=== PATIENT | male | born 1980 | race Caucasian/White ===

== ENCOUNTER 2020-05-15 10:27 | Emergency (ER) | payer BC, SELFPAY ==
--- NOTE | ~2020-05-15 | XR_ITS ---
EXAMINATION: XR chest 1V portable DATE: 05/15/2020 11:25 INDICATION: Cough. TECHNIQUE: A single frontal view of the chest was obtained. COMPARISON: None. FINDINGS: There are mild airspace opacities in left mid and lower lung zones. No pleural effusion or pneumothorax. The heart size is normal. IMPRESSION: 1. Mild airspace opacities in left mid and lower lung zones, consistent with pneumonia. Reviewed, dictated and finalized at location A. IFIED WELDING INSPECTOR IMPRESSION: 1. Mild airspace opacities in left mid and lower lung zones, consistent with pn eumonia.
[2020-05-15 10:32] VITALS: BP 130/78; PULSE 80; RESP 18; TEMP 36.8; O2SAT 100
[2020-05-15 10:39] VITALS: O2SAT 100
--- NOTE | 2020-05-15 10:52 | ED.GENADULT ---
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 Patient has been taking ibuprofen and Tylenol with resolution of his fever. Patient notes nonproductive cough with some mild pain in the left lower ribs that occurs with coughing otherwise denies any shortness of breath chest pain abdominal pain. Does note headache and frontal sinus congestion Related Data Allergies Allergy/AdvReac Type Severity Reaction Status Date / Time No Known Allergies Allergy Verified 05/15/20 10:36 Review of Systems Review of Systems: All systems reviewed & are unremarkable except as noted in HPI and below PMFSH Past Medical History Medical History (Updated 05/15/20 @ 11:03 by Simeon Patiño PA-C) Seasonal allergies Family History Family History (Updated 02/10/14 @ 07:13 by DOCTOR UNKNOWN) Father Family history of hemochromatosis Social History Social History Smoking status: Never smoker Alcohol intake: current Exam Narrative: Exam Narrative: GENERAL: Well-appearing, well-nourished, and in no acute distress. HEAD: Normocephalic, atraumatic. EYES: PERRLA and EOMI. ENT: Nares clear, no rhinorrhea or epistaxis. CHEST: Clear to auscultation. No respiratory distress. No wheezes rales or rhonchi HEART: Regular rate and rhythm. No murmur heard. EXTREMITIES: Normal range of motion. No edema. SKIN: Warm, dry, no rash. NEURO: No focal deficits. Alert and oriented x3. PSYCH: Normal mood and affect. Course Course Emergency Course: Patient in the room at this time afebrile nontoxic-appearing no hypoxemia tested for COVID-19 sent home with an MDI instruct instructions for follow-up advised to self quarantine aware that he will have to go through primary care to get his results. Patient given reasons to return felt appropriate for outpatient reevaluation. Patient's called wanting to have blood drawn on her concerned for blood abnormalities with his likely COVID-19 infection. She was concerned and upset and anxious for his diagnosis given his high fevers. Patient was made aware of his 's concerns and is okay with blood being drawn. Patient was made aware of case findings treatment plan and diagnosis. Consultations Consultation #1: Discussed case with primary care who will follow the patient is aware of the findings Date: 05/15/20 Time: 13:31 Vital Signs Vital signs: Vital Signs Temperature 98.2 F 05/15/20 10:32 Pulse Rate 80 05/15/20 10:32 Respiratory Rate 18 05/15/20 10:32 Blood Pressure 130/78 05/15/20 10:32 Pulse Oximetry 100 05/15/20 10:32 Temperature 98.2 F 05/15/20 10:32 Pulse Rate 60 05/15/20 12:08 Respiratory Rate 18 05/15/20 12:08 Blood Pressure 114/78 05/15/20 12:08 Pulse Oximetry 98 05/15/20 12:08 Medical Decision Making [facility] Narrative Medical decision making narrative: Patient with upper respiratory infection potentially COVID-19 advised to self quarantine no hypoxemia afebrile nontoxic-appearing without emesis felt appropriate for outpatient reevaluation provided with reasons to return. Patient has been on the potline monitor throughout his visit has never been tachycardic or hypoxic in the room does not appear ill resting comfortably talks without difficulty. Patient will be covered with a Z-Cesar pending his results to cover for bacterial pneumonia as a potential etiology. Patient has been given strict reasons to return and agrees with plan. Vital Signs Vital Signs: Vital Signs Temperature 9
[2020-05-15 11:03] VITALS: BP 122/70; PULSE 72; RESP 18; O2SAT 99
[2020-05-15 12:08] VITALS: BP 114/78; PULSE 60; RESP 18; O2SAT 98
[2020-05-15 12:37] LABS: Basophils Percent Auto 0.4 % (0.2-1.2); Eosinophils Percent Auto 0.4 % (0-4.4); Hematocrit 42.6 % (42.0-52.0); Hemoglobin 14.3 g/dL (14.0-18.0); Immature Granulocyte Absolute 0.03 K/mm3 (0.00-0.031); Immature Granulocyte Percent A 1.1 % (0-0.5); Lymphocytes Absolute Auto 0.69 K/mm3 (0.9-3.2); Mean Corpuscular HGB Conc 33.6 g/dl (32-36); Mean Corpuscular Hemoglobin 30.8 pg (26-34); Mean Corpuscular Volume 91.6 fl (80-100); Mean Platelet Volume 9.4 fl (7.4-10.4); Monocytes Absolute Auto 0.5 K/mm3 (0.1-0.6); Monocytes Percent Auto 16.7 % (2.6-8.5); Neutrophils Absolute Auto 1.6 K/mm3 (1.3-6.7); Neutrophils Percent Auto 56.4 % (45.5-73.1); Platelet Count Result 158 k/mm3 (150-375); Red Blood Count 4.65 M/mm3 (4.6-6.20); Red Cell Distribution Width 12.2 % (11.5-14.5); White Blood Count 2.8 K/mm3 (4.5-10.0)
[2020-05-15 12:48] LABS: Lactic Acid Reflex 1.2 mmol/L (0.7-2.1)
[2020-05-15 12:51] LABS: CRP 3.9 mg/dL (<1.0)
[2020-05-15 13:12] LABS: Alanine Aminotransferase 18 U/L (4-50); Albumin Level 3.5 g/dL (3.5-5.1); Alkaline Phosphatase 93 U/L (38-126); Anion Gap 2 mmol/L (8-16); Aspartate Amino Transferase 29 U/L (17-59); Bilirubin,Total 0.2 mg/dL (0.2-1.3); Blood Urea Nitrogen 10 mg/dL (9-20); Calcium 8.3 mg/dL (8.4-10.2); Carbon Dioxide 34 mmol/L (22-30); Chloride 101 mmol/L (98-107); Estimated CRCL calculation 91 ml/min; Estimated Glomerular Filt Rate > 60; Glucose 94 mg/dL (75-110); Potassium 4.1 mmol/L (3.4-5.0); Sodium 137 mmol/L (137-145)
[2020-05-15 13:55] VITALS: BP 120/78; PULSE 65; RESP 18; O2SAT 100
[2020-05-15 20:45] LABS: SARS-CoV-2 RNA PCR Positive
== END 2020-05-15 13:56 | disposition home or self-care (01) ==
PROVIDERS: Emergency Medicine Emergency Medical Services; Emergency Provider Emergency Medicine; PCP Family Medicine
DX: U07.1 COVID-19 (principal); R91.8 Other nonspecific abnormal finding of lung field
CPT/HCPCS: 36415; 71045; 80053; 83605; 85025; 86140; 87040; 87635; 99283; C9803; U0003

== ENCOUNTER → 2023-07-25 08:52 | Outpatient (CLI) | payer BC, SELFPAY ==
--- NOTE | ~2023-07-25 | XR_ITS ---
Lumbosacral Spine: AP and lateral views Clinical History: Pain Findings: The normal lordotic curve is maintained. The vertebral bodies and posterior elements are i ntact. The intervertebral disc spaces are preserved. The sacroiliac joints are normally outlined. Impression: No significant abnormality. Reviewed, dictated and finalized at [facility]. OR ORE CONTROLLER Impression: No significant abnormality.
== END ==
PROVIDERS: PCP Physician Assistant Medical; Visit Provider Physician Assistant Medical
DX: M54.30 Sciatica, unspecified side (principal); M54.50 Low back pain, unspecified
CPT/HCPCS: 72100

== ENCOUNTER 2024-04-14 10:15 | Emergency (ER) | payer BC, SELFPAY ==
--- NOTE | ~2024-04-14 | XR_ITS ---
XR chest 2V Ordering provider: Antonella Lambert NP History: 43 years Male with . cough, SOB, restrictive breathing for 5 days . Comparison: May 15, 2020 FINDINGS: MEDIASTINUM: The cardiac silhouette is not enlarged. LUNGS: No infiltrates, effusions or pneumothorax. OTHER: No free air under the diaphragm. IMPRESSION: No acute cardiopulmonary pathology. Reviewed, dictated and finalized at location A.
--- NOTE | ~2024-04-14 | XR_ITS ---
XR abdomen/kub 1V Ordering provider: Antonella Lambert NP History: . ABD bloating with diahrrea, cough sob for 5 days . Comparison: None. FINDINGS: BOWEL: Nonobstructive bowel gas pattern. ORGANOMEGALY: None. SIGNIFICANT PATHOLOGIC CALCIFICATIONS: None. OTHER: No free air is seen under the diaphragm. IMPRESSION: NO ACUTE ABDOMINAL FINDINGS. Reviewed, dictated and finalized at location A.
[2024-04-14 10:22] VITALS: BP 117/81; PULSE 59; RESP 16; TEMP 36.2; O2SAT 100
--- NOTE | 2024-04-14 10:40 | ED_ITS ---
HPI - General Adult General Chief complaint: Nausea/Vomiting/Diarrhea Stated complaint: Diarrhea Time Seen by Provider: 04/14/24 10:40 Source: patient Mode of arrival: ambulatory Limitations: no limitations History of Present Illness HPI narrative: 43-year-old male presents with complaint of nausea, fatigue, diarrhea for 5 days. Reports that diarrhea is improving. Has had upper abdominal bloating for the past 2 days. Has not taking any ysuq-gqh-toxbpfj medications to treat bloating. Afebrile but reports hot and cold sweats. Has not taking Imodium to treat diarrhea because it is improving. Patient also reports intermittent headache, cough, chest congestion. Takes Zyrtec and nasal spray daily. Reports that his breathing feels restricted. In the past has had something similar to asthma due to secondary smoking that he grew up with. Has used albuterol inhaler in past but does not have one currently. Patient requesting albuterol inhaler. Patient states that his is concerned that he has pneumonia. Is requesting antibiotics. All systems reviewed and negative except as noted above. Related Data Allergies Allergy/AdvReac Type Severity Reaction Status Date / Time No Known Allergies Allergy Verified 04/14/24 10:44 Review of Systems Review of Systems: CONSTITUTIONAL: Denies fever. Reports chills, sweats, fatigue. EYES: Denies visual changes, redness, or discharge. ENT: Reports rhinorrhea, congestion. Denies sore throat, or otalgia. CARDIOVASCULAR: Denies chest pain, palpitations, or edema. RESPIRATORY: Reports cough. Denies dyspnea. GASTROINTESTINAL: Denies abdominal pain, nausea, vomiting, or diarrhea. GENITOURINARY: Denies dysuria or hematuria. SKIN: Denies rash or itching. MUSCULOSKELETAL: Denies back pain, joint pain, or myalgia. NEUROLOGIC: Denies headache, numbness, or weakness. PSYCHIATRIC: Denies anxiety or depression. All other systems reviewed are negative, except as documented in HPI. [facility] Past Medical History Medical History Asbestos exposure Scrotal mass Seasonal allergies Wellness examination Family History Family History Father Family history of hemochromatosis Social History Social History Social History: Spouse Smoking status: Never smoker Smokeless tobacco user: chewing tobacco Second hand tobacco smoke exposure: No Smoking end date: 06/06/19 Alcohol intake: current Alcohol use details: Occasionally Substance use: never Substance use type: does not use Do You Feel Safe in your Home?: Yes Lack of Transportation: No Lack of Food: Never True Current Housing: I Have Housing Concerned About Future Housing: No Difficulty Paying Gas/Electric Bills: No Difficulty Paying for Meds: No Currently Unemployed: No Education: Don't Know Difficulty w/ Childcare or Family Care: No Living arrangements: with family Occupation/Education: occupation 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 There is no relevant family history pertinent to the presenting complaint. Exam Narrative: GENERAL: This is a well-nourished, well-developed patient, in no apparent distress. HEAD: normocephalic, atraumatic. EYES: PERRL. Sclera clear/white. Vision is grossly intact. EARS: External ears normal, auditory canals clear and without drainage, TMs normal without perforation. Hearing grossly intact. NOSE: External nose normal with no obvious nasal discharge, nares without redness, no rhinorrhea. THROAT: Mucous membranes moist, posterior pharynx clear. NECK: Neck supple, non-tender without lymphadenopathy, masses or thyromegaly. CARDIOVASCULAR: Regular rate and rhythm without murmurs, gallops, or rubs. RESPIRATORY: Clear to auscultation. Breath sounds equal bilaterally. No wheezes, rales, or rhonchi. GASTROINTESTINAL: Abdomen soft, non-tender, nondistended. Bowel sounds are hypo active. No hepato-splenomegaly, or palpable masses. No guarding. SKIN: warm, Dry, intact with no suspicious lesions or rash, good texture and turgor. NEURO: awake, alert, and oriented to person, place and time. There were no obvious focal neurologic abnormalities. EXTREMITIES: No joint tenderness, effusion, or edema noted. Course Course Level of Care: Express Care Visit Vital Signs Vital signs: Vital Signs Temperature 36.2 C L 04/14/24 10:22 Pulse Rate 59 L 04/14/24 10:22 Respiratory Rate 16 04/14/24 10:22 Blood Pressure 117/81 04/14/24 10:22 Pulse Oximetry 100 04/14/24 10:22 Temperature 36.2 C L 04/14/24 10:22 Pulse Rate 59 L 04/14/24 10:22 Respiratory Rate 16 04/14/24 10:22 Blood Pressure 117/81 04/14/24 10:22 Pulse Oximetry 100 04/14/24 10:22 Oxygen Delivery Room Air 04/14/24 10:27 Review Medical Decision Making MDM Narrative Medical decision making narrative: Lungs clear to auscultation. No abdominal tenderness on exam. Afebrile. No coughing while at [facility]. Patient is well-appearing. Talkative and smiling during exam. Went over patient's x-ray results with him. Patient re questing albuterol inhaler to treat cough. Explain to patient that his lungs are clear, no wheezing. Only use inhaler when needed. He reports history of bronchitis and wants inhaler in case coughing gets worse. I recommended that he follow-up with his primary care physician and go to ER for any worsening of symptoms. Patient is aware of diagnosis, understands and agrees to treatment plan. An ticipatory guidance given. Patient agrees to follow-up as directed and is aware of reasons to seek care at the emergency department. Portions of this record may have been created with voice recognition software Vital Signs Vital Signs: Vital Signs Temperature 36.2 C L 04/14/24 10:22 Pulse Rate 59 L 04/14/24 10:22 Respiratory Rate 16 04/14/24 10:22 Blood Pressure 117/81 04/14/24 10:22 Pulse Oximetry 100 04/14/24 10:22 Temperature 36.2 C L 04/14/24 10:22 Pulse Rate 59 L 04/14/24 10:22 Respiratory Rate 16 04/14/24 10:22 Blood Pressure 117/81 04/14/24 10:22 Pulse Oximetry 100 04/14/24 10:22 Oxygen Delivery Room Air 04/14/24 10:27 Lab Data Labs: Lab Results 04/14/24 Range/Units 11:09 POC Influenza A Ag Negative (Negative) POC Influenza B Ag Negative (Negative) POC SARS CoV-2 Ag Negative (Negative) Imaging Data My impression: Agree with radiologist Radiologist's impression: XR chest 2V Ordering provider: Antonella Lambert NP History: 43 years Male with . cough, SOB, restrictive breathing for 5 days . Comparison: May 15, 2020 FINDINGS: MEDIASTINUM: The cardiac silhouette is not enlarged. LUNGS: No infiltrates, effusions or pneumothorax. OTHER: No free air under the diaphragm. IMPRESSION: No acute cardiopulmonary pathology. Discharge Plan Discharge Clinical Impression: Viral upper respiratory tract infection with cough, Viral gastroenteritis, Encounter for medication refill Patient Disposition: Home, Self-Care Condition: Stable Instructions: Upper Respiratory Infection (DC), Acute Bronchitis (ED), Acute Diarrhea (ED) Additional Instructions: The x-ray of your chest and abdomen was normal today. Your COVID and influenza test were negative. Your symptoms are viral and may last 10-14 days. Take an gued-aey-rdybvgi medication to treat her cough such as Mucinex DM. Drink at least 64 oz of water a day to prevent dehydration. May try an knfa-jts-srxwyzh medications such as Gas-X to treat abdominal bloating. Follow-up with your doctor as needed. If you have severe abdominal pain go to the ER. Prescriptions: New albuterol sulfate 90 mcg/actuation HFA aerosol inhaler 2 puff inhalation Q4-6H PRN (Reason: shortness of breath or wheezing) Qty: 8.5 0RF Follow-up/Referrals: Paolo Espinosa MD [Primary Care Provider] - Time of Disposition: 11:44
[2024-04-14 11:13] LABS: EDCOVIDSCREEN Negative (Negative); EDINFLUASCREEN Negative (Negative); EDINFLUBSCREEN Negative (Negative)
== END 2024-04-14 11:47 | disposition home or self-care (01) ==
PROVIDERS: Emergency Provider Nurse Practitioner Family; PCP Family Medicine
DX: J06.9 Acute upper respiratory infection, unspecified (principal); R05.1 Acute cough; B34.9 Viral infection, unspecified; Z76.0 Encounter for issue of repeat prescription; Z20.822 Contact with and (suspected) exposure to COVID-19; Z87.891 Personal history of nicotine dependence
CPT/HCPCS: 71046; 74018; 87426; 87804; 99213; G0463

== ENCOUNTER 2025-05-21 14:21 | Emergency (ER) | payer BC, SELFPAY ==
--- NOTE | 2025-05-21 14:22 | ED.URI ---
HPI - URI/Sore Throat General Chief Complaint: Upper Respiratory Infection Stated Complaint: Sinus Infection Symptoms Time Seen by Provider: 05/21/25 14:22 Source: patient Mode of arrival: ambulatory Limitations: no limitations History of Present Illness HPI Narrative: patient is a 44-year-old male who presents with headache, ear pain, cough, sinus pressure, congestion for 4 days. Denies any fever, chills, nausea, vomiting, diarrhea. has taken 1 dose of Sudafed Related Data Home Medications ?Medication ?Instructions ?Recorded ?Confirmed ?Last Taken ?Type No Home Medications 02/04/25 05/21/25 Unknown History Allergies Allergy/AdvReac Type Severity Reaction Status Date / Time No Known Allergies Allergy Verified 05/21/25 14:27 Review of Systems Review of Systems: All systems reviewed & are unremarkable except as noted in HPI and below Constitutional: Constitutional: Denies chills, Denies fatigue, Denies fever(s), Reports headache(s), Denies malaise and Denies weakness Eyes: Eyes: Denies blurry vision, Denies itchy eyes and Denies loss of vision ENT: Reports otalgia, Reports headache(s), Reports nasal congestion, Denies sinus pain, Reports sinus pressure and Denies sore throat Cardiovascular: Cardiovascular: Denies chest pain, Denies irregular heart rhythm and Denies dyspnea Respiratory: Respiratory: Reports cough and Denies dyspnea Gastrointestinal: Gastrointestinal: Denies abdominal pain, Denies diarrhea, Denies nausea and Denies vomiting Musculoskeletal: Musculoskeletal: Denies back pain, Denies myalgias and Denies arthralgias Integumentary/Breasts: Skin/Breast: Denies pruritus and Denies rash Neurologic: Denies headache(s), Denies loss of vision and Denies weakness Psychiatric: Psychiatric: Reports no additional psychiatric complaints Endocrine: Endocrine: Denies fatigue Allergic/Immunologic: Allergic/Immunologic: Denies itchy eyes PMFSH Past Medical History Medical History Wellness examination Scrotal mass Asbestos exposure Seasonal allergies Family History Family History Father Family history of hemochromatosis Social History Social History Social History: Spouse Smoking status: Never smoker Smokeless tobacco user: chewing tobacco Second hand tobacco smoke exposure: No Smoking end date: 06/06/19 Alcohol intake: current Alcohol use details: Occasionally Substance use: never Substance use type: does not use Lack of Transportation: No Lack of Food: Never True Current Housing: I Have Housing Concerned About Future Housing: No Difficulty Paying Gas/Electric Bills: No Difficulty Paying for Meds: No Currently Unemployed: No Education: Don't Know Difficulty w/ Childcare or Family Care: No Living arrangements: with family Occupation/Education: occupation 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 There is no relevant family history pertinent to the presenting complaint. Exam Const: General: cooperative, healthy appearing, comfortable, no acute distress and well nourished Nutritional Appearance: well nourished Orientation/consciousness: patient oriented x3 Limitations: no limitations HENMT: Head: normal to inspection, normocephalic and atraumatic Ears: hearing grossly normal bilaterally, external ears normal, TM's normal bilaterally, EAC's normal and no periauricular adenopathy Face/Nose/Sinus: Normal external nose present, Abnormal mucous membranes and turbinates present erythematous bilateral and diffuse, normal facial exam, sinuses nontender and face symmetric Face and sinus: normal facial exam, sinuses nontender and face symmetric Mouth: Yes Normal oral and palatal mucosa present, Yes lip normal, Yes tongue normal, Yes Normal salivary glands and ducts present, Yes oropharynx normal and Yes moist mucous membranes Teeth and gingiva: dentition normal Throat: posterior oropharynx normal, tonsils normal and uvula midline Eyes: General: appearance normal, both eyes and all related structures Alignment and Position: alignment normal and position normal Periorbital: periorbital findings normal Eyelids: eyelids normal Pupils: Equal, round and reactive pupils present Neck: Neck: normal visual inspection, full ROM, no lymphadenopathy and supple Chest: Chest palpation & inspection: normal inspection of the chest and normal palpation of entire chest wall Resp: Effort & Inspection: normal respiratory effort and able to speak in complete sentences Auscultation: clear to auscultation bilaterally, no crackles, no rales, no rhonchi and no wheezes Cardio: Rate: regular rate Rhythm: regular rhythm Heart sounds: S1 normal heart sound present and S2 normal heart sound present GI: Inspection: normal to inspection Skin: General skin exam: normal color and no rashes or lesions noted Neuro: General: patient oriented x3 and moves all extremities Cranial nerves: Yes Equal, round and reactive pupils present Speech: normal speech Gait exam (Neuro): Normal gait present Extrem: General: normal to inspection, full ROM and no edema Psych: Appearance: grossly normal and well kempt Mental Status: mental status grossly normal Speech and movement: Normal speech and movement present Affect: normal affect Attitude: cooperative Thought process: Normal thought process present Course Course Emergency Course: Patient is aware of diagnosis, understands and agrees to treatment plan. Anticipatory guidance given. Patient agrees to follow-up as directed and is aware of reasons to seek care at the emergency department. Portions of this record may have been created with voice recognition software Level of Care: Express Care Visit Vital Signs Vital signs: Vital Signs Temperature 36.3 C L 05/21/25 14:28 Pulse Rate 80 05/21/25 14:28 Respiratory Rate 16 05/21/25 14:28 Blood Pressure 113/83 05/21/25 14:28 Pulse Oximetry 99 05/21/25 14:28 Temperature 36.3 C L 05/21/25 14:28 Pulse Rate 80 05/21/25 14:28 Respiratory Rate 16 05/21/25 14:28 Blood Pressure 113/83 05/21/25 14:28 Pulse Oximetry 99 05/21/25 14:28 [facility] MDM Narrative Medical decision making narrative: Rapid COVID, flu, strep were negative. A throat culture is pending. Symptoms likely viral in etiology. Pt well hydrated appearing, in no respiratory distress, hemodynamically stable. Recommend supportive care. The patient is stable at time of discharge the clinical impression was discussed and the patient was given the opportunity to ask questions, which were addressed as completely as possible given the information available at present. Anticipatory guidance and return to care precautions were discussed and the importance of primary care follow-up was stressed and encouraged. The patient voiced understanding of the plan, indications to return, and the need for follow-up. Exam findings show no acute concerns or changes Patient is appropriate for outpatient treatment and follow-up. Differential Diagnosis Differential Diagnosis: Differential diagnosis considered: Amado virus, strep pharyngitis, allergic rhinitis, upper respiratory tract infection, sinusitis, rhinosinusitis, nasopharyngitis. viral pharyngitis, otitis media, otitis externa, otitis effusion, foreign body, cerumen impaction, viral syndrome, and influenza. Medical Records I have reviewed the following patient records and this information was taken into consideration when formulating the assessment and plan.: previous clinic visits Lab Data MDM Lab Attestation statement: I personally reviewed the patient's lab results. Labs: Lab Results 05/21/25 Range/Units 15:40 POC Influenza A Ag Negative (Negative) POC Influenza B Ag Negative (Negative) POC SARS CoV-2 Ag Negative (Negative) POC Grp A Strep Screen Negative (Negative) Discharge Plan Discharge Clinical Impression: Upper respiratory infection Qualifiers: URI type: acute nasopharyngitis (common cold) Qualified Code(s): J00 - Acute nasopharyngitis [common cold] Patient Disposition: Home Condition: Stable Instructions: Upper Respiratory Infection (ED) Additional Instructions: Your rapid strep swab was negative today at [facility]. A throat culture will be sent to the laboratory for further testing. If the test is positive, you will receive a phone call within 48 hours and an appropriate antibiotic will be initiated at that time. Your Covid and flu are both negative Your symptoms are likely due to a viral illness, which is not treated with antibiotics. Viral symptoms can be present for up to a few weeks. -For pain/fever, you may take: Tylenol 650-1000mg by mouth every 4-6 hours. Do not exceed 4000mg in 24 hours. Advil (Ibuprofen) 600 mg by mouth every 6 hours. Do not exceed 2400mg in 24 hours. 8 AM: Tylenol 11 AM: Ibuprofen 2 PM: Tylenol 5 PM: Ibuprofen 8 PM: Tylenol 11 PM: Ibuprofen 2 AM: Tylenol 5 AM: Ibuprofen -Antihistamine medication such as Benadryl/Zyrtec at night and Claritin/Nicki during the day can help improve symptoms. -Use Flonase twice a day for 5 days then daily to help reduce the inflammation and dry up your sinuses. -You can also use Sudafed behind the pharmacy counter(12 or 24 hour). Be sure to drink plenty of water with these medications at least 8 ounces with every dose and it is important to drink 8 to 10 glasses of water per day. Water is a natural decongestant -Eat and drink things that are easy to swallow, like tea or soup, or popsicles. -Oral rinses such as: Salt water gargles and/or may use topical anesthetic (eg. Chloraseptic spray) or lozenges to relieve dryness or throat pain). -Frequent hand washing or hand reinstatement clerk is one of the best ways to prevent spread of infection. -Using a vaporizer or humidifier at night will also help thin secretions and help with coughing up phlegm. Call your Primary Care Doctor and make a follow-up appointment in 3 days. If your cough worsens, you develop a fever greater than 103, you develop shaking chills, a fast heartbeat, trouble breathing and/or feel you are are breathing much faster than usual, call your Primary Care Doctor or go to the ER. Patient Language: Burkinan Prescriptions: No Action No Home Medications Follow-up/Referrals: Ramone Clayton MD [Physician, Family Practice] - 3 Days Time of Disposition: 15:43
[2025-05-21 14:28] VITALS: BP 113/83; PULSE 80; RESP 16; TEMP 36.3; O2SAT 99
[2025-05-21 15:42] LABS: EDCOVIDSCREEN Negative (Negative); EDINFLUASCREEN Negative (Negative); EDINFLUBSCREEN Negative (Negative); EDSTREPNEGPOS1 Negative (Negative)
== END 2025-05-21 15:50 | disposition home or self-care (01) ==
PROVIDERS: Emergency Provider Nurse Practitioner Family
DX: J00 Acute nasopharyngitis [common cold] (principal); Z20.822 Contact with and (suspected) exposure to COVID-19; Z87.891 Personal history of nicotine dependence
CPT/HCPCS: 87081; 87426; 87804; 87880; 99213; G0463